=== PATIENT | female | born 1965 | race African-American/Black ===

== ENCOUNTER → 2016-09-26 | Outpatient (CLI) | payer BC ==
--- NOTE | 2016-09-26 13:17 | RADIOLOGY REPORT (SQ) ---
EXAM DESCRIPTION: U/S ABDOMEN COMPLETE W/DOPPLER COMPLETED DATE/TIME: 09/26/2016 12:57 pm REASON FOR STUDY: ABD PAIN (R10.9) R10.9 UNSPECIFIED ABDOMINAL PAIN COMPARISON: None. TECHNIQUE: Dynamic and static grayscale images acquired of the abdomen and recorded on PACS. Additio nal selected color Doppler and spectral images recorded. LIMITATIONS: None. FINDINGS: PANCREAS: No masses. Visualized pancreatic duct normal caliber. LIVER: Echotexture is coarse with increased echogenicity consistent with fatty infiltration. LIVER VASCULATURE: Normal directional flow of the main portal vein and hepatic veins. GALLBLADDER: No stones. Normal wall thickness. No pericholecystic fluid. ULTRASOUND-DETECTED MAHARAJ'S SIGN: Negative. INTRAHEPATIC DUCTS AND COMMON DUCT: CBD and intrahepatic ducts normal caliber. No filling defects. INFERIOR VENA CAVA: Normal flow. AORTA: No aneurysm. RIGHT KIDNEY: Normal size. Normal echogenicity. No solid or suspicious masses. No hydronephrosis. No calcifications. LEFT KIDNEY: Normal size. Normal echogenicity. No solid or suspicious masses. No hydronephrosis. No calcifications. SPLEEN:Not visualized. PERITONEAL AND PLEURAL SPACES: No ascites or effusions. OTHER: No other significant finding. IMPRESSION: FATTY LIVER. NO OTHER SIGNIFICANT FINDING. TECHNICAL DOCUMENTATION: JOB ID: [id number] [employer]- All Rights Reserved
== END ==
LOC: RAD 10:44
PROVIDERS: ATTEND Internal Medicine Medical Oncology
DX: R10.9 Unspecified abdominal pain (principal)
CPT/HCPCS: 76700; 93976

== ENCOUNTER → 2016-11-06 | Outpatient (CLI) | payer BC ==
--- NOTE | 2016-11-06 17:58 | WOMENS IMAGING REPORT ---
EXAM DESCRIPTION: 3D DX MAMMO BILAT; U/S BREAST UNILATERAL, COMPL COMPLETED DATE/TIME: 11/06/2016 10:51 am; 11/06/2016 12:53 pm REASON FOR STUDY: R92.8; LEFT BREAST LUMP R92.8 R92.8 OTH ABN AND INCONCLUSIVE FINDINGS ON DX IMAGI NG OF YODIT Z53.8 PROCEDURE AND TREATMENT NOT CARRIED OUT FOR OTHER REAS COMPARISON: Bilateral mammograms and left breast ultrasound 09/15/2015 TECHNIQUE: Standard craniocaudal and mediolateral oblique views of each breast recorded using digita l acquisition and breast tomosynthesis. Left breast ultrasound was also performed LIMITATIONS: None. FINDINGS: RIGHT BREAST MASSES: No suspicious masses. CALCIFICATIONS: No new or suspicious calcifications. ARCHITECTURAL DISTORTION: None. DEVELOPING DENSITY: None. ASYMMETRY: None noted. OTHER: No other significant findings. LEFT BREAST MASSES: No suspicious masses. CALCIFICATIONS: No new or suspicious calcifications. ARCHITECTURAL DISTORTION: None. DEVELOPING DENSITY: None. ASYMMETRY: None noted. OTHER: No other significant finding. Read with the assistance of CAD: .[facility] - R2 Cenova Version 1.3 .[facility] Imaging - R2 Cenova Version 1.3 .[facility] Imaging - R2 Cenova Version 2.4 .[facility] - R2 Cenova Version 2.4 .[facility] - R2 Corn Picker Version 9.2 Left breast ultrasound: A well-circumscribed hypoechoic solid nodule with good acoustic through transmission is present in th e left breast lower inner quadrant 7 to 8 o'clock position. This measures 9 x 5 mm, and a similar co mpared to ultrasound exam 09/15/2015. IMPRESSION: No mammographic/ tomosynthesis evidence for malignancy bilaterally. 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 BREAST DENSITY: d. The breasts are extremely dense, which lowers the sensitivity of mammography. BIRAD: 2 Benign findings. RECOMMENDATION: RECOMMENDED FOLLOW UP: Please continue yearly bilateral screening tomosynthesis SPECIFIC INTERVENTION/IMAGING/CONSULTATION RECOMMENDED:No additional intervention/ imaging/consultati on needed at this time. COMMUNICATION:The negative/benign results were communicated to the patient. COMMENT: The patient has been notified of the results by letter per MQSA requirements. Additional no tification policies are in place for contacting patient with suspicious or incomplete findings. Quality ID #225: The [employer] recommends an annual screening mammogram for women aged 40 years or over. This facility utilizes a reminder system to ensure that all patients receive reminder letters, and/or direct phone calls for appointments. This includes reminders for routine scr eening mammograms, diagnostic mammograms, or other Breast Imaging Interventions when appropriate. Th is patient will be placed in the appropriate reminder system. The [employer] (ACR) has developed recommendations for screening MRI of the breast s in certain patient populations, to be used in conjunction with mammography. Breast MRI surveillanc e may be appropriate for women with more than 20% lifetime risk of developing breast cancer as deter mined by genetic testing, significant family history of the disease, or history of mantle radiation f or Hodgkins Disease. ACR Practice Guidelines 2008. DBT Technology DBT is a type of tomographic mammography. With conventional mammography, overlapping breast tissue ma y make lesions difficult to detect, even with good compression. DBT uses an x-ray tube that rotates a round the breast, taking images at different angles. These images are then combined to create thin sl ices of the breast that the radiologist can view as a 3D reconstruction. The [employer] unit can perform full-field digital mammograms (2D imaging); or DBT (3D imaging); or both, in a combination mode that quickly performs both the mammogram and the tomosynthesis scan while the breast is still compressed. PQRS 6045F: Fluoroscopic imaging is not utilized for breast tomosynthesis. TECHNICAL DOCUMENTATION: FINDING NUMBER: (1) ASSESSMENT: (1) JOB ID: [id number] [employer]- All Rights Reserved
--- NOTE | 2016-11-06 17:58 | WOMENS IMAGING REPORT ---
EXAM DESCRIPTION: 3D DX MAMMO BILAT; U/S BREAST UNILATERAL, COMPL COMPLETED DATE/TIME: 11/06/2016 10:51 am; 11/06/2016 12:53 pm REASON FOR STUDY: R92.8; LEFT BREAST LUMP R92.8 R92.8 OTH ABN AND INCONCLUSIVE FINDINGS ON DX IMAGI NG OF YODIT Z53.8 PROCEDURE AND TREATMENT NOT CARRIED OUT FOR OTHER REAS COMPARISON: Bilateral mammograms and left breast ultrasound 09/15/2015 TECHNIQUE: Standard craniocaudal and mediolateral oblique views of each breast recorded using digita l acquisition and breast tomosynthesis. Left breast ultrasound was also performed LIMITATIONS: None. FINDINGS: RIGHT BREAST MASSES: No suspicious masses. CALCIFICATIONS: No new or suspicious calcifications. ARCHITECTURAL DISTORTION: None. DEVELOPING DENSITY: None. ASYMMETRY: None noted. OTHER: No other significant findings. LEFT BREAST MASSES: No suspicious masses. CALCIFICATIONS: No new or suspicious calcifications. ARCHITECTURAL DISTORTION: None. DEVELOPING DENSITY: None. ASYMMETRY: None noted. OTHER: No other significant finding. Read with the assistance of CAD: .[facility] - R2 Cenova Version 1.3 .[facility] Imaging - R2 Cenova Version 1.[address] Imaging - R2 Cenova Version 2.4 .[facility] - R2 Cenova Version 2.4 .[facility] - R2 [employer] Version 9.2 Left breast ultrasound: A well-circumscribed hypoechoic solid nodule with good acoustic through transmission is present in th e left breast lower inner quadrant 7 to 8 o'clock position. This measures 9 x 5 mm, and a similar co mpared to ultrasound exam 09/15/2015. IMPRESSION: No mammographic/ tomosynthesis evidence for malignancy bilaterally. 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 BREAST DENSITY: d. The breasts are extremely dense, which lowers the sensitivity of mammography. BIRAD: 2 Benign findings. RECOMMENDATION: RECOMMENDED FOLLOW UP: Please continue yearly bilateral screening tomosynthesis SPECIFIC INTERVENTION/IMAGING/CONSULTATION RECOMMENDED:No additional intervention/ imaging/consultati on needed at this time. COMMUNICATION:The negative/benign results were communicated to the patient. COMMENT: The patient has been notified of the results by letter per MQSA requirements. Additional no tification policies are in place for contacting patient with suspicious or incomplete findings. Quality ID #225: The [employer] recommends an annual screening mammogram for women aged 40 years or over. This facility utilizes a reminder system to ensure that all patients receive reminder letters, and/or direct phone calls for appointments. This includes reminders for routine scr eening mammograms, diagnostic mammograms, or other Breast Imaging Interventions when appropriate. Th is patient will be placed in the appropriate reminder system. The [employer] (ACR) has developed recommendations for screening MRI of the breast s in certain patient populations, to be used in conjunction with mammography. Breast MRI surveillanc e may be appropriate for women with more than 20% lifetime risk of developing breast cancer as deter mined by genetic testing, significant family history of the disease, or history of mantle radiation f or Hodgkins Disease. ACR Practice Guidelines 2008. DBT Technology DBT is a type of tomographic mammography. With conventional mammography, overlapping breast tissue ma y make lesions difficult to detect, even with good compression. DBT uses an x-ray tube that rotates a round the breast, taking images at different angles. These images are then combined to create thin sl ices of the breast that the radiologist can view as a 3D reconstruction. The [employer] unit can perform full-field digital mammograms (2D imaging); or DBT (3D imaging); or both, in a combination mode that quickly performs both the mammogram and the tomosynthesis scan while the breast is still compressed. PQRS 6045F: Fluoroscopic imaging is not utilized for breast tomosynthesis. TECHNICAL DOCUMENTATION: FINDING NUMBER: (1) ASSESSMENT: (1) JOB ID: [id number] [employer]- All Rights Reserved
== END ==
LOC: WI 10-17 10:23
PROVIDERS: ATTEND Internal Medicine Medical Oncology
DX: R92.8 Other abnormal and inconclusive findings on diagnostic imaging of breast (principal); N63 Unspecified lump in breast
CPT/HCPCS: 76641; G0279; G0204; 77062; 77066

== ENCOUNTER 2019-06-29 08:11 | Inpatient (IN) | payer OTHER ==
[2019-06-29] MEDS ORDERED: NORMAL SALINE 1000 ML 1,000 ML IV ONE ×2 (09:53→12:57)
--- NOTE | 2019-06-29 10:20 | RADIOLOGY REPORT (SQ) ---
EXAM DESCRIPTION: CHEST SINGLE VIEW COMPLETED DATE/TIME: 06/29/2019 10:05 am REASON FOR STUDY: decreased breath sounds COMPARISON: None. EXAM PARAMETERS: NUMBER OF VIEWS: One view. TECHNIQUE: Single frontal radiographic view of the chest acquired. RADIATION DOSE: NA LIMITATIONS: None. FINDINGS: LUNGS AND PLEURA: Emphysematous change with hyperinflation. No focal airspace disease. N o pleural effusion or pneumothorax. Biapical scarring. Symmetric nipple shadows. MEDIASTINUM AND HILAR STRUCTURES: No masses. Contour normal. HEART AND VASCULAR STRUCTURES: Heart normal in size. Normal vasculature. BONES: No acute bony abnormality. Decreased mineralization. 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 Chronic left posterior 4th rib fracture. HARDWARE: None in the chest. OTHER: No other significant finding. IMPRESSION: Emphysematous change without evidence of acute cardiopulmonary process. TECHNICAL DOCUMENTATION: JOB ID: [id number] 2010 [employer]- All Rights Reserved Reading location - IP/workstation name: [email or web address]
--- NOTE | 2019-06-29 10:26 | RADIOLOGY REPORT (SQ) ---
EXAM DESCRIPTION: CT HEAD WITHOUT COMPLETED DATE/TIME: 06/29/2019 10:05 am REASON FOR STUDY: lower ext weakness/left greater than right COMPARISON: None. TECHNIQUE: Axial images acquired through the brain without intravenous contrast. Images reviewed wi th bone, brain and subdural windows. Additional sagittal and coronal reconstructions were generated. Images stored on PACS. All CT scanners at this facility use dose modulation, iterative reconstruction, and/or weight based d osing when appropriate to reduce radiation dose to as low as reasonably achievable (ALARA). [facility]: Dose Right [facility]: CareDose [facility]: Dose Right [facility]: Teradose 4D [facility]: [employer] RADIATION DOSE: CT Rad equipment meets quality standard of care and radiation dose reduction techniq ues were employed. CTDIvol: 53.2 mGy. DLP: 991 mGy-cm LIMITATIONS: None. FINDINGS: VENTRICLES: Normal size and contour. The cisterns are patent. CEREBRUM: No masses. No hemorrhage. No midline shift. No evidence for acute infarction. Normal gra y/white matter differentiation. No areas of low density in the white matter. CEREBELLUM: No masses. No hemorrhage. No alteration of density. No evidence for acute infarction. EXTRAAXIAL SPACES: No fluid collections. No masses. ORBITS AND GLOBE: No intra- or extraconal masses. Normal contour of globe without masses. CALVARIUM: No fracture. PARANASAL SINUSES: Slight to mild deviation of nasal septum to the left of the midline. Nicole bull rehan in the right middle turbinate. SOFT TISSUES: No mass or hematoma. OTHER: Small right mastoid effusion. IMPRESSION: 1. No acute intracranial abnormality. 2. Additional findings as above. EVIDENCE OF ACUTE STROKE: NO. COMMENT: Quality ID # 436: Final reports with documentation of one or more dose reduction techniques (e.g., Automated exposure control, adjustment of the mA and/or kV according to patient size, use of iterative reconstruction technique) TECHNICAL DOCUMENTATION: JOB ID: [id number] 2010 [employer]- All Rights Reserved Reading location - IP/workstation name: [email or web address]
[2019-06-29 10:53] LABS: ABSOLUTE BASOPHILS # (AUTO) 0.1 10^3/uL (0.0-0.2); ABSOLUTE LYMPHOCYTES (AUTO) 1.5 10^3/uL (0.5-4.7); ABSOLUTE MONOCYTES (AUTO) 1.2 10^3/uL (0.1-1.4); ABSOLUTE NEUT (AUTO) 5.7 10^3/uL (1.7-8.2); BASOPHILS % (AUTO) 0.8 % (0-2); EOSINOPHILS % (AUTO) 0.1 % (0-6); HEMATOCRIT 34.7 % (36.0-47.0); HEMOGLOBIN 12.2 g/dL (12.0-15.5); LYMPHOCYTES % (AUTO) 17.6 % (13-45); MEAN CORPUSCULAR HGB CONC 35.1 g/dL (32.0-36.0); MEAN CORPUSCULAR VOLUME 94 fl (80-97); MONOCYTES % (AUTO) 14.1 % (3-13); PLATELET COUNT 168 10^3/uL (150-450); RED BLOOD COUNT 3.69 10^6/uL (3.72-5.28); RED CELL DISTRIBUTION WIDTH 12.8 % (11.5-14.0); SEGMENTED NEUTROPHILS % (AUTO) 67.4 % (42-78); TOTAL CELLS COUNTED % (AUTO) 100 %; WHITE BLOOD COUNT 8.5 10^3/uL (4.0-10.5)
[2019-06-29 11:00] LABS: APPEARANCE,URINE SLIGHTLY-CLOUDY; BILIRUBIN,URINE NEGATIVE (NEGATIVE); COLOR,URINE YELLOW; GLUCOSE, URINE NEGATIVE (NEGATIVE); INTERNATIONAL RATION (INR) 0.96; KETONES,URINE 20 mg/dL (NEGATIVE); LEUKOCYTE ESTERASE,URINE MODERATE (NEGATIVE); NITRITE,URINE NEGATIVE (NEGATIVE); PROTEIN,URINE NEGATIVE (NEGATIVE); PROTHROMBIN TIME 12.8 SEC (11.4-15.4); URINE SPECIFIC GRAVITY 1.013; UROBILINOGEN,URINE NEGATIVE mg/dL (<2.0)
[2019-06-29 11:01] LABS: PARTIAL THROMBOPLASTIN TIME 31.5 SEC (23.5-35.8)
[2019-06-29 11:14] LABS: URINE AMPHETAMINES SCREEN NEGATIVE; URINE BARBITURATES SCREEN NEGATIVE; URINE BENZODIAZEPINES SCREEN NEGATIVE; URINE COCAINE SCREEN NEGATIVE; URINE MARIJUANA (THC) SCREEN NEGATIVE; URINE METHADONE SCREEN NEGATIVE; URINE PHENCYCLIDINE SCREEN NEGATIVE
[2019-06-29 11:21] LABS: D-DIMER 6.48 ug/mL (0.00-0.50)
[2019-06-29 11:23] LABS: ALCOHOL < 10 mg/dL (NONE DETECTED); ALKALINE PHOSPHATASE 104 U/L (38-126); ANION GAP 6 (5-19); ASPARTATE AMINO TRANSFERASE 60 U/L (14-36); BILIRUBIN,DIRECT 0.2 mg/dL (0.0-0.4); BILIRUBIN,TOTAL 1.2 mg/dL (0.2-1.3); BLOOD UREA NITROGEN 13 mg/dL (7-20); CALCIUM 9.6 mg/dL (8.4-10.2); CARBON DIOXIDE 28 mmol/L (22-30); CHLORIDE 92 mmol/L (98-107); CREATINE KINASE 66 U/L (30-135); GLUCOSE 97 mg/dL (75-110); POTASSIUM 4.8 mmol/L (3.6-5.0); TOTAL PROTEIN 8.2 g/dL (6.3-8.2)
[2019-06-29 11:36] LABS: ERYTHROCYTE SEDIMENTATION RATE 94 mm/hr (0-30)
[2019-06-29] MEDS ORDERED: MORPHINE SULFATE 10 MG/ML INJ IV ONE ×2 (12:58→16:10)
--- NOTE | 2019-06-29 14:46 | RADIOLOGY REPORT (SQ) ---
EXAM DESCRIPTION: VENOUS BILATERAL LOWER COMPLETED DATE/TIME: 06/29/2019 2:19 pm REASON FOR STUDY: bilat leg pain/elevated D-dimer. COMPARISON: None. TECHNIQUE: Dynamic and static morin scale and color images acquired of both lower extremity venous sy stems. Selected spectral images acquired with additional compression and augmentation maneuvers. Imag es stored on PACS. LIMITATIONS: None. FINDINGS: RIGHT LEG COMMON FEMORAL AND FEMORAL: Normal phasicity, compression and augmentation. No visualized echogenic m aterial on morin scale. No defects on color images. POPLITEAL: Normal compression and augmentation. No visualized echogenic material on morin scale. No de fects on color images. CALF VESSELS: Normal compression and augmentation. No visualized echogenic material on morin scale. No defects on color image. GSV AND SSV: Normal compression. No visualized echogenic material on morin scale. No defects on color images. ANY DEEP VENOUS INSUFFICIENCY: Not evaluated. ANY EVIDENCE OF POPLITEAL CYST: No. OTHER: No other significant finding. LEFT LEG COMMON FEMORAL AND FEMORAL: Normal phasicity, compression and augmentation. No visualized echogenic m aterial on morin scale. No defects on color images. POPLITEAL: Normal compression and augmentation. No visualized echogenic material on morin scale. No de fects on color images. CALF VESSELS: Normal compression and augmentation. No visualized echogenic material on morin scale. No defects on color images. GSV AND SSV: Normal compression. No visualized echogenic material on morin scale. No defects on color images. ANY DEEP VENOUS INSUFFICIENCY: Not evaluated. ANY EVIDENCE POPLITEAL CYST: No. OTHER: No other significant finding. IMPRESSION: NO EVIDENCE DVT OR SVT IN EITHER LEG. TECHNICAL DOCUMENTATION: JOB ID: [id number] 2010 [email or web address]- All Rights Reserved Reading location - IP/workstation name: [email or web address]
--- NOTE | 2019-06-29 14:54 | RADIOLOGY REPORT (SQ) ---
EXAM DESCRIPTION: CTA CHEST COMPLETED DATE/TIME: 06/29/2019 2:22 pm REASON FOR STUDY: elevated D dimer/ COMPARISON: None. TECHNIQUE: CT scan of the chest performed using helical scanning technique with dynamic intravenous contrast injection. Images reviewed with lung, soft tissue and bone windows. Reconstructed coronal and sagittal MPR images reviewed. Additional 3 dimensional post-processing performed to develop Maximal Intensity Projection images (IL P). All images stored on PACS. All CT scanners at this facility use dose modulation, iterative reconstruction, and/or weight based d osing when appropriate to reduce radiation dose to as low as reasonably achievable (ALARA). [facility]: Dose Right [facility]: CareDose [facility]: Dose Right [facility]: Teradose 4D [facility]: [employer] CONTRAST TYPE AND DOSE: contrast/concentration: Isovue 350.00 mg/ml; Total Contrast Delivered: 49.0 ml; Total Saline Delivered: 70.0 ml Contrast bolus adequate for pulmonary arteries and aorta. RENAL FUNCTION: Creatinine 0.34 RADIATION DOSE: CT Rad equipment meets quality standard of care and radiation dose reduction techniq ues were employed. CTDIvol: 3.3 - 14.3 mGy. DLP: 553 mGy-cm. . LIMITATIONS: None. FINDINGS: LUNGS AND PLEURA: No masses, infiltrates, or pneumothorax. No pleural effusions or pleura l calcifications. Scattered centrilobular emphysema. AORTA AND GREAT VESSELS: No aneurysm. No dissection. HEART: No pericardial effusion. No significant coronary artery calcifications. PULMONARY ARTERIES: No emboli visualized in the main pulmonary arteries or the segmental branches. HILAR AND MEDIASTINAL STRUCTURES: No identified masses or abnormal nodes. HARDWARE: None in the chest. UPPER ABDOMEN: No significant findings. Limited exam. THYROID AND OTHER SOFT TISSUES: No masses. No adenopathy. BONES: No acute or significant finding. 3D MIPS: Confirm above findings. OTHER: No other significant finding. IMPRESSION: 1. No evidence of pulmonary embolus or other acute intrathoracic process. 2. Mild emphysematous change. COMMENT: Quality ID # 436: Final reports with documentation of one or more dose reduction techniques (e.g., Automated exposure control, adjustment of the mA and/or kV according to patient size, use of iterative reconstruction technique) TECHNICAL DOCUMENTATION: JOB ID: [id number] 2010 [employer]- All Rights Reserved Reading location - IP/workstation name: [email or web address]
--- NOTE | 2019-06-29 15:18 | RADIOLOGY REPORT (SQ) ---
EXAM DESCRIPTION: CT LUMBAR SPINE WITHOUT COMPLETED DATE/TIME: 06/29/2019 2:22 pm REASON FOR STUDY: bilateral lower leg pain/weakness COMPARISON: None. TECHNIQUE: Axial images acquired through the lumbar spine without intravenous contrast. Images revi ewed with lung, soft tissue and bone windows. Reconstructed coronal and sagittal MPR images reviewed . All images stored on PACS. All CT scanners at this facility use dose modulation, iterative reconstruction, and/or weight based d osing when appropriate to reduce radiation dose to as low as reasonably achievable (ALARA). [facility]: Dose Right [facility]: CareDose [facility]: Dose Right [facility]: Teradose 4D [facility]: [employer] RADIATION DOSE: mGy. LIMITATIONS: None. FINDINGS: SEGMENTATION: Normal. No transitional anatomy. ALIGNMENT: Normal. VERTEBRAL BODIES: No fractures. No dislocation. No acute findings. DISCS: Mild disc height loss at L4-5. Mild circumferential disc bulge at L4-5 and L5-S1 without sign ificant spinal canal stenosis. PEDICLES, TRANSVERSE PROCESSES: No fractures. No dislocation. No acute findings. FACETS, POSTERIOR ELEMENTS: No fractures. No dislocation. Mild lower lumbar facet arthropathy. No high-grade neural foraminal narrowing. HARDWARE: None in the spine. VISUALIZED RIBS: No fractures. SOFT TISSUES: No significant or acute finding in adjacent soft tissues. Moderate formed stool within the rectal vault. Scattered pelvic phleboliths. OTHER: Vascular calcifications. IMPRESSION: 1. No evidence of acute bony abnormality of the lumbar spine. 2. Mild degenerative change without significant osseous spinal canal stenosis or neural foraminal na rrowing. TECHNICAL DOCUMENTATION: JOB ID: [id number] Quality ID # [id number]: Final reports with documentation of one or more dose reduction techniques (e.g., Au tomated exposure control, adjustment of the mA and/or kV according to patient size, use of iterative reconstruction technique) 2010 [employer]- All Rights Reserved Reading location - IP/workstation name: [email or web address]
[2019-06-29] MEDS ORDERED: KETOROLAC TROMETHAMINE INJ/PF 30 MG/1 ML SDV IV ONE (16:09)
--- NOTE | 2019-06-29 17:09 | ER Document Report ---
Entered by SHI FLORES SCRIBE 06/29/19 0952 Acting as scribe for:JOAN HANSON MD ED General - General Chief Complaint: Leg Pain Stated Complaint: LEG PAIN Time Seen by Provider: 06/29/19 09:14 Information source: Patient Notes: 53-year-old female presents to the emergency department complaining of bilateral leg cramping that began a couple days ago. Patient explains that she was sore yesterday, the pain varies and is located in her calves. Patient describes the pain beginning as "prickly" then stinging then returning to a prickly sensation. Patient states that she drinks plenty of fluids and reports little fluid intake today. Patient denies injury, headache and weight loss. Patient stated that she took an ibuprofen with no relief. TRAVEL OUTSIDE OF THE [place] IN LAST 30 DAYS: No - Related Data Allergies/Adverse Reactions: No Known Allergies Allergy (Verified 06/29/19 08:21) Past Medical History - General Information source: Patient - Social History Smoking Status: Current Every Day Smoker Cigarette use (# per day): Yes - 4 cigarettes per day Frequency of alcohol use: None Drug Abuse: None Occupation: Receiving Clerk Family History: DM, Other - Sickle cell anemia Patient has suicidal ideation: No Patient has homicidal ideation: No - Past Medical History Cardiac Medical History: Reports: Other - Irregular Heartbeat Pulmonary Medical History: Reports: Hx Asthma Neurological Medical History: Reports: Hx Seizures Past Surgical History: Reports: Hx Herniorrhaphy, Hx Mastectomy - bilateral, Hx Tubal Ligation - Immunizations Hx Diphtheria, Pertussis, Tetanus Vaccination: Yes Review of Systems - Review of Systems Constitutional: See HPI. denies: Weight loss EENT: No symptoms reported Cardiovascular: No symptoms reported Respiratory: No symptoms reported Gastrointestinal: See HPI. denies: Diarrhea, Vomiting Genitourinary: denies: Dysuria Female Genitourinary: No symptoms reported Musculoskeletal: See HPI, Other - Leg cramping Skin: No symptoms reported Hematologic/Lymphatic: No symptoms reported Neurological/Psychological: No symptoms reported -: Yes All other systems reviewed and negative Physical Exam - Vital signs Vitals: Temp Pulse Resp BP Pulse Ox 97.3 F 97 16 175/116 H 100 06/29/19 08:20 06/29/19 08:20 06/29/19 08:20 06/29/19 08:20 06/29/19 08:20 - Notes Notes: Physical Exam: General: Alert, appears malnourished and thin. Overall emaciated. HEENT: Normocephalic. Atraumatic. PERRL. Extraocular movements intact. Oropharynx clear. Neck: Supple. Non-tender. Respiratory: No respiratory distress. Clear and equal breath sounds bilaterally. Cardiovascular: Tachycardic. Abdominal: Non-tender. Mild distension. Normal Bowel Sounds. Back: No gross abnormalities. Extremities: Moves all four extremities. Upper extremities: Normal inspection. Normal ROM. Lower extremities: No edema. Generalized weakness. Minimal leg raise off gurney with LLE worse than RLE. Neurological: Normal cognition. AAOx4. Normal speech. Psychological: Normal affect. Normal Mood. Skin: Warm. Dry. Normal color. Course - Re-evaluation Re-evalutation: 06/29/19 17:04 Patient still having lower extremity weakness in both legs left greater than right. Patient is found to be hyponatremic. Patient also has some type of inflammation going on with an elevated sed rate of 95. Patient also has a d-d leyla of 6.5. Work-up to date has not shown any evidence for stroke based on CT scan of her head CT scan of her abdomen and chest and chest shows no pulmonary embolus and no acute process inflammation or obstruction in her abdomen. Venous Doppler studies of both lower extremity shows no DVT. Patient has been given IV fluids x2L and pain medications of ketorolac and morphine patient does move her lower extremities better than before however she still has greatest difficulty with the left lower extremity with flexing or extending her lower extremity at the knee. Patient barely can lift her legs off of the gurney. Plan is to admit patient to the hospital continue treating her hyponatremia and adjust accordingly as needed. 06/29/19 17:08 Case discussed with hospitalist who will admit patient to the hospital for further management of her generalized weakness greatest in the lower extremities and her hyponatremia. - Vital Signs Vital signs: Temp Pulse Resp BP Pulse Ox 97.3 F 97 11 L 153/93 H 100 06/29/19 08:20 06/29/19 08:20 06/29/19 16:01 06/29/19 16:01 06/29/19 16:01 - Laboratory Result Diagrams: 06/29/19 10:25 06/29/19 10:25 Laboratory results interpreted by me: 06/29/19 06/29/19 06/29/19 10:25 10:25 10:25 RBC 3.69 L Hct 34.7 L [place] % (Auto) 14.1 H ESR 94 H D-Dimer 6.48 H Sodium 125.7 L Chloride 92 L Creatinine 0.34 L AST 60 H Urine Ketones Ur Leukocyte Esterase 06/29/19 10:25 RBC Hct [place] % (Auto) ESR D-Dimer Sodium Chloride Creatinine AST Urine Ketones 20 H Ur Leukocyte Esterase MODERATE H Patient has a low level troponin elevation 0.02 9 repeat troponin pending at this time there is no acute ST elevation present. - Diagnostic Test Radiology reviewed: Image reviewed, Reports reviewed Radiology results interpreted by me: 06/29/19 17:01 Twelve-lead EKG shows a normal sinus rhythm rate of 99 right atrial abnormality and consider left ventricular hypertrophy this was done on 06/29/2019 1043. 06/29/19 17:[address] scan of head no acute process no evidence for stroke CT scan of chest shows no pulmonary emboli no acute process chest x-ray plain film no acute process emphysema appearance. CT of abdomen and pelvis no acute process noted no obstruction bilateral lower extremities venous Doppler study shows no DVT. Discharge - Discharge Clinical Impression: Acute hyponatremia, Bilateral leg weakness, Elevated troponin I level Condition: Fair Disposition: ADMITTED INPATIENT Admitting Provider: Mayte (Hospitalist) Unit Admitted: Telemetry I personally performed the services described in the documentation, reviewed and edited the documentation which was dictated to the scribe in my presence, and it accurately records my words and actions.
[2019-06-29 17:54] LABS: OSMOLALITY,URINE 440 mOsm/kg (300-900)
[2019-06-29 18:00] LABS: URINE SODIUM 17 mmol/L (30-90)
[2019-06-29] MEDS ORDERED: ACETAMINOPHEN 325 MG TABLET PO PRN (18:06)
[2019-06-29] MEDS ORDERED: ALBUTEROL SULFATE 0.083% NEB 2.5 MG/3 ML AMPUL NEB PRN (18:06)
--- NOTE | 2019-06-29 18:20 | PDOC H&P ---
History of Present Illness Admission Date/PCP: 06/29/19 17:46 Patient complains of: Paresthesias in bilateral lower extremities History of Present Illness: CORBIN MULLIGAN is a 53 year old female with a history of childhood asthma, scoliosis, alopecia, who presents to the hospital for evaluation of ambulatory dysfunction as well as paresthesia in bilateral lower extremities left more than right. Symptoms have been present for about 1 week now and have been associated with cramping type pain in both legs occurring very frequently throughout the day. Patient endorses usually having cramps but has been more prolonged on this occasion and have persisted despite her taking potassium and magnesium supplements. Patient has been taking ibuprofen for this for the past few days without much relief. Patient also admits to lower back pain. Patient states that her leg symptoms have been profound to the point where she is now requiring a walker for ambulation. Admits some urinary incontinence though seems limited by the fact that patient is not very ambulatory at this point. Past Medical History Pulmonary Medical History: Reports: Asthma Past Surgical History Past Surgical History: Reports: Herniorrhaphy, Tubal Ligation, Other - Breast biopsy bilateral Social History Smoking Status: Current Every Day Smoker Frequency of Alcohol Use: Occasional Hx Recreational Drug Use: No - Advance Directive Resuscitation Status: Full Code Family History Family History: DM, Other - Sickle cell anemia Parental Family History Reviewed: Yes Children Family History Reviewed: NA Sibling(s) Family History Reviewed.: NA Medication/Allergy Home Medications: No Home Medications 11/10/15 Allergies/Adverse Reactions: No Known Allergies Allergy (Verified 06/29/19 08:21) Review of Systems Constitutional: ABSENT: anorexia, chills, fatigue, fever(s), headache(s) Eyes: ABSENT: visual disturbances Nose, Mouth, and Throat: ABSENT: headache(s) Cardiovascular: ABSENT: chest pain, dyspnea on exertion, edema Respiratory: ABSENT: cough, dyspnea Gastrointestinal: ABSENT: abdominal pain, diarrhea, nausea, vomiting Genitourinary: ABSENT: dysuria Musculoskeletal: PRESENT: back pain Integumentary: ABSENT: diaphoresis Neurological: PRESENT: dizziness, weakness. ABSENT: focal weakness, syncope Psychiatric: ABSENT: anxiety Hematologic/Lymphatic: ABSENT: easy bruising Physical Exam Vital Signs: Temp Pulse Resp BP Pulse Ox 97.3 F 97 11 L 153/93 H 100 06/29/19 08:20 06/29/19 08:20 06/29/19 16:01 06/29/19 16:01 06/29/19 16:01 Intake & Output 06/28/19 06/29/19 06/30/19 06:59 06:59 06:59 Intake Total 1999 Balance 1999 Weight 53 kg General appearance: PRESENT: no acute distress, cooperative, thin Eye exam: PRESENT: EOMI. ABSENT: scleral icterus Mouth exam: PRESENT: neck supple Neck exam: ABSENT: JVD Respiratory exam: PRESENT: clear to auscultation alicja, unlabored. ABSENT: tachypnea, wheezes Cardiovascular exam: PRESENT: +S1, +S2, tachycardia. ABSENT: irregular rhythm GI/Abdominal exam: PRESENT: soft. ABSENT: rebound, rigid, tenderness Extremities exam: ABSENT: calf tenderness, pedal edema Musculoskeletal exam: PRESENT: full ROM, other - + straight leg test Neurological exam: PRESENT: alert, awake, oriented to person, oriented to place, oriented to time Psychiatric exam: ABSENT: anxious Focused psych exam: ABSENT: internal stimuli, pressured speech Skin exam: ABSENT: jaundice Results Laboratory Results: 06/29/19 10:25 06/29/19 06/29/19 06/29/19 10:25 10:25 10:25 WBC 8.5 RBC 3.69 L Hgb 12.2 Hct 34.7 L MCV 94 MCH 33.0 MCHC 35.1 RDW 12.8 Plt Count 168 Seg Neutrophils % 67.4 Sodium 125.7 L Potassium 4.8 Chloride 92 L Carbon Dioxide 28 Anion Gap 6 BUN 13 Creatinine 0.34 L Est GFR ( Amer) > 60 Glucose 97 Serum Osmolality Lactic Acid Calcium 9.6 Total Bilirubin 1.2 AST 60 H Alkaline Phosphatase 104 Total Protein 8.2 Albumin 4.0 Lipase 141.0 Urine Color YELLOW Urine Appearance SLIGHTLY-CLOUDY Urine pH 5.0 Ur Specific [place] 1.013 Urine Protein NEGATIVE Urine Glucose (UA) NEGATIVE Urine Ketones 20 H Urine Blood NEGATIVE Urine Nitrite NEGATIVE Ur Leukocyte Esterase MODERATE H Urine WBC (Auto) 17 Urine RBC (Auto) 12 Urine Osmolality 06/29/19 06/29/19 06/29/19 10:25 10:25 11:02 WBC RBC Hgb Hct MCV MCH MCHC RDW Plt Count Seg Neutrophils % Sodium Potassium Chloride Carbon Dioxide Anion Gap BUN Creatinine Est GFR ( Amer) Glucose Serum Osmolality 267 L Lactic Acid 1.1 Calcium Total Bilirubin AST Alkaline Phosphatase Total Protein Albumin Lipase Urine Color Urine Appearance Urine pH Ur Specific [place] Urine Protein Urine Glucose (UA) Urine Ketones Urine Blood Urine Nitrite Ur Leukocyte Esterase Urine WBC (Auto) Urine RBC (Auto) Urine Osmolality 440 06/29/19 06/29/19 10:25 10:25 Creatine Kinase 66 Troponin I 0.029 Impressions: Head CT 06/29/19 09:51 IMPRESSION: 1. No acute intracranial abnormality. 2. Additional findings as above. EVIDENCE OF ACUTE STROKE: NO. Chest X-Ray 06/29/19 09:52 IMPRESSION: Emphysematous change without evidence of acute cardiopulmonary process. Venous Doppler Study 06/29/19 12:48 IMPRESSION: NO EVIDENCE DVT OR SVT IN EITHER LEG. Lumbar Spine CT 06/29/19 12:50 IMPRESSION: 1. No evidence of acute bony abnormality of the lumbar spine. 2. Mild degenerative change without significant osseous spinal canal stenosis or neural foraminal narrowing. Chest/Abdomen CTA 06/29/19 12:53 IMPRESSION: 1. No evidence of pulmonary embolus or other acute intrathoracic process. 2. Mild emphysematous change. Assessment and Plan - Diagnosis (1) Hyponatremia Is this a current diagnosis for this admission?: Yes Plan: Possibly secondary to hypovolemia. Will check response to IV fluids. Repeat BMP. Check serum and urine osmolarity as well as urine sodium. (2) Lumbar radiculopathy, acute Is this a current diagnosis for this admission?: Yes Plan: Lumbar CT some mild degenerative joint disease of the L-spine as well as some evidence of disc bulging which could very well account for symptoms of radiculopathy, positive straight leg test and low back pain. Patient will benefit from physical therapy. Will start patient on gabapentin 300 mg every afternoon and uptitrate as needed. (3) Bilateral leg weakness Is this a current diagnosis for this admission?: Yes Plan: Physical therapy (4) Elevated troponin I level Is this a current diagnosis for this admission?: Yes Plan: Denies any chest pain or shortness of breath. Will check repeat troponin. (5) Elevated d-dimer Is this a current diagnosis for this admission?: Yes Plan: Patient does seem to be having some systemic inflammatory process and may very well have some underlying rheumatological disease or connective tissue disease especially in light of alopecia. However, there is no clear suggestion that this is clinically significant to patient's current presentation. CTA of the chest was done which was negative for PE. Venous Dopplers were also negative for DVT or SVT. - Time Time Spent with patient: 35 or more minutes
[2019-06-29 18:27] LABS: ANION GAP 7 (5-19); BLOOD UREA NITROGEN 12 mg/dL (7-20); CALCIUM 8.9 mg/dL (8.4-10.2); CARBON DIOXIDE 25 mmol/L (22-30); CHLORIDE 99 mmol/L (98-107); GLUCOSE 110 mg/dL (75-110)
[2019-06-29] MEDS ORDERED: GABAPENTIN 300 MG CAPSULE PO ONE ×2 (19:00→22:00)
[2019-06-30] MEDS: TRAMADOL HCL 50 MG TABLET PO PRN ×2 (00:34→11:29)
[2019-06-30] MEDS ORDERED: INFLUENZA QUAD (6MOS+) 2019-20 VAC 0.5 ML SYR IM ONE (01:17)
[2019-06-30 06:35] LABS: ABSOLUTE BASOPHILS # (AUTO) 0.1 10^3/uL (0.0-0.2); ABSOLUTE LYMPHOCYTES (AUTO) 2.5 10^3/uL (0.5-4.7); ABSOLUTE MONOCYTES (AUTO) 1.1 10^3/uL (0.1-1.4); BASOPHILS % (AUTO) 1.3 % (0-2); EOSINOPHILS % (AUTO) 0.4 % (0-6); HEMATOCRIT 26.6 % (36.0-47.0); LYMPHOCYTES % (AUTO) 32.4 % (13-45); MEAN CORPUSCULAR HEMOGLOBIN 33.8 pg (27.0-33.4); MEAN CORPUSCULAR HGB CONC 35.3 g/dL (32.0-36.0); MEAN CORPUSCULAR VOLUME 96 fl (80-97); MONOCYTES % (AUTO) 14.2 % (3-13); PLATELET COUNT 150 10^3/uL (150-450); RED BLOOD COUNT 2.77 10^6/uL (3.72-5.28); RED CELL DISTRIBUTION WIDTH 12.5 % (11.5-14.0); SEGMENTED NEUTROPHILS % (AUTO) 51.7 % (42-78); TOTAL CELLS COUNTED % (AUTO) 100 %; WHITE BLOOD COUNT 7.8 10^3/uL (4.0-10.5)
[2019-06-30 06:36] LABS: ANION GAP 7 (5-19); BLOOD UREA NITROGEN 13 mg/dL (7-20); CALCIUM 8.9 mg/dL (8.4-10.2); CARBON DIOXIDE 26 mmol/L (22-30); CHLORIDE 99 mmol/L (98-107); GLUCOSE 100 mg/dL (75-110); PHOSPHORUS 4.1 mg/dL (2.5-4.5); POTASSIUM 3.6 mmol/L (3.6-5.0)
[2019-06-30 06:37] LABS: HEMOGLOBIN 9.4 g/dL (12.0-15.5)
[2019-06-30] MEDS ORDERED: NORMAL SALINE 1000 ML 1,000 ML IV ONE (08:39)
[2019-06-30] MEDS: ENOXAPARIN SODIUM INJ 40 MG/0.4 ML DISP.SYRIN SUBCUT SCH (09:39)
[2019-06-30] MEDS ORDERED: AMLODIPINE BESYLATE 5 MG TABLET PO ONE (11:19)
--- NOTE | 2019-06-30 11:43 | EKG REPORT ---
SEVERITY:- ABNORMAL ECG - SINUS RHYTHM RIGHT ATRIAL ABNORMALITY CONSIDER LEFT VENTRICULAR HYPERTROPHY : Confirmed by: Alexis Champagne 30-Jun-2019 11:42:59
--- NOTE | 2019-06-30 14:27 | PDOC PROGRESS REPORT ---
Subjective Progress Note for:: 06/30/19 Subjective:: Patient having some back pain but mostly paresthesias down her leg mostly the left leg. Was not able to work much with physical therapy. Reason For Visit: HYPONATREMIA, BACK PAIN Physical Exam Vital Signs: Temp Pulse Resp BP Pulse Ox 97.8 F 85 17 144/89 H 100 06/30/19 12:00 06/30/19 12:00 06/30/19 12:00 06/30/19 11:05 06/30/19 12:00 Intake & Output 06/29/19 06/30/19 07/01/19 06:59 06:59 06:59 Intake Total 1999 Balance 1999 Weight 44.3 kg 44.3 kg General appearance: PRESENT: no acute distress, cooperative Neck exam: ABSENT: JVD Respiratory exam: PRESENT: symmetrical, unlabored. ABSENT: accessory muscle use, retraction, tachypnea Cardiovascular exam: PRESENT: RRR. ABSENT: bradycardia, irregular rhythm, tachycardia GI/Abdominal exam: PRESENT: soft. ABSENT: rebound, rigid, tenderness Extremities exam: ABSENT: tenderness Musculoskeletal exam: PRESENT: tenderness - Mildly low back Neurological exam: PRESENT: alert, awake, oriented to person, oriented to place, oriented to time Results Laboratory Results: 06/30/19 05:49 06/30/19 05:49 06/29/19 06/29/19 06/29/19 10:25 10:25 17:55 WBC RBC Hgb Hct MCV MCH MCHC RDW Plt Count Seg Neutrophils % Sodium 130.7 L Potassium 4.0 Chloride 99 Carbon Dioxide 25 Anion Gap 7 BUN 12 Creatinine 0.39 L Est GFR ( Amer) > 60 Glucose 110 Serum Osmolality 267 L Calcium 8.9 Phosphorus Magnesium Urine Osmolality 440 06/30/19 06/30/19 05:49 05:49 WBC 7.8 RBC 2.77 L Hgb 9.4 L D Hct 26.6 L MCV 96 MCH 33.8 H MCHC 35.3 RDW 12.5 Plt Count 150 Seg Neutrophils % 51.7 Sodium 131.9 L Potassium 3.6 Chloride 99 Carbon Dioxide 26 Anion Gap 7 BUN 13 Creatinine 0.38 L Est GFR ( Amer) > 60 Glucose 100 Serum Osmolality Calcium 8.9 Phosphorus 4.1 Magnesium 2.0 Urine Osmolality 06/29/19 06/29/19 06/29/19 10:25 10:25 17:55 Creatine Kinase 66 Troponin I 0.029 0.022 Impressions: Head CT 06/29/19 09:51 IMPRESSION: 1. No acute intracranial abnormality. 2. Additional findings as above. EVIDENCE OF ACUTE STROKE: NO. Chest X-Ray 06/29/19 09:52 IMPRESSION: Emphysematous change without evidence of acute cardiopulmonary process. Venous Doppler Study 06/29/19 12:48 IMPRESSION: NO EVIDENCE DVT OR SVT IN EITHER LEG. Lumbar Spine CT 06/29/19 12:50 IMPRESSION: 1. No evidence of acute bony abnormality of the lumbar spine. 2. Mild degenerative change without significant osseous spinal canal stenosis or neural foraminal narrowing. Chest/Abdomen CTA 06/29/19 12:53 IMPRESSION: 1. No evidence of pulmonary embolus or other acute intrathoracic process. 2. Mild emphysematous change. Assessment and Plan - Diagnosis (1) Hyponatremia Is this a current diagnosis for this admission?: Yes Plan: Possibly secondary to hypovolemia. Improved significantly with IV fluids. Will give another bolus of normal saline today. Encourage adequate caloric intake. (2) Lumbar radiculopathy, acute Is this a current diagnosis for this admission?: Yes Plan: Lumbar CT some mild degenerative joint disease of the L-spine as well as some evidence of disc bulging which could very well account for symptoms of radiculopathy, positive straight leg test and low back pain. Continue patient on gabapentin 300 mg every afternoon and uptitrate as needed. I have consulted pain management for new recommendations regarding patient's pain/paresthesia control (3) Bilateral leg weakness Is this a current diagnosis for this admission?: Yes Plan: Physical therapy (4) Elevated troponin I level Is this a current diagnosis for this admission?: Yes Plan: Minimally elevated and flat trend. No evidence of ACS. (5) Elevated d-dimer Is this a current diagnosis for this admission?: Yes Plan: Patient does seem to be having some systemic inflammatory process and may very well have some underlying rheumatological disease or connective tissue disease especially in light of alopecia. However, there is no clear suggestion that this is clinically significant to patient's current presentation. CTA of the chest was done which was negative for PE. Venous Dopplers were also negative for DVT or SVT. - Time Time Spent with patient: Less than 15 minutes
[2019-06-30] MEDS ORDERED: GABAPENTIN 300 MG CAPSULE PO SCH (18:00)
[2019-07-01 05:52] LABS: ANION GAP 8 (5-19); BLOOD UREA NITROGEN 9 mg/dL (7-20); CARBON DIOXIDE 27 mmol/L (22-30); CHLORIDE 99 mmol/L (98-107); GLUCOSE 94 mg/dL (75-110); POTASSIUM 3.6 mmol/L (3.6-5.0)
[2019-07-01] MEDS: TRAMADOL HCL 50 MG TABLET PO PRN (07:47)
--- NOTE | 2019-07-01 08:37 | RADIOLOGY REPORT (SQ) ---
EXAM DESCRIPTION: MRI LUMBAR SPINE WITHOUT COMPLETED DATE/TIME: 06/30/2019 9:54 pm REASON FOR STUDY: lumbar radiculopathy COMPARISON: CT from recently. TECHNIQUE: Sagittal and Axial imaging includes T1, T2, STIR and gradient echo sequences. Coronal T2/ HASTE imaging. LIMITATIONS: Axial sequences in particular are up to moderately limited by motion. FINDINGS: VISUALIZED UPPER ABDOMEN: Liver looks enlarged in the craniocaudal dimension at least, ove r 20 cm. Limited assessment of the abdomen otherwise. SEGMENTATION: No transitional anatomy. The lowest well-developed disc space is labeled L5-S1. ALIGNMENT: Anatomic. VERTEBRAE: Intact. BONE MARROW: Normal. No marrow replacement or reactive changes. DISC SIGNAL: Mild signal and height loss at L4-5. POSTERIOR ELEMENTS: Facet arthropathy, variable degenerative overgrowth particularly in the lower se gments. No overt pars defect. HARDWARE: None in the spine. CORD AND CONUS: Normal in size and signal intensity. Conus at the appropriate level. SOFT TISSUES: No aortic aneurysm seen. No bulky retroperitoneal adenopathy or mass. No paraspinal mas s or fluid. L1-L2: Suspect mild left foraminal narrowing. L2-L3: Mild left foraminal narrowing. L3-L4: Mild bilateral foraminal narrowing. L4-L5: Broad mild disc protrusion without significant nerve root impingement or central stenosis. Mi ld facet degenerative overgrowth. Up to moderate left and mild right foraminal narrowing suggested. L5-S1: No significant spinal stenosis or exit foraminal stenosis. LOWER THORACIC: Incompletely imaged. No stenosis seen. SACRUM: Visualized upper sacrum intact. OTHER: Urinary bladder looks distended, incompletely evaluated. IMPRESSION: 1. Spondylosis without suggestion of high-grade stenosis. 2. No fracture or worrisome bone lesion or spinal malalignment. 3. Other findings as above. TECHNICAL DOCUMENTATION: JOB ID: [id number] 2010 [employer]- All Rights Reserved Reading location - IP/workstation name: [email or web address]
[2019-07-01] MEDS: ENOXAPARIN SODIUM INJ 40 MG/0.4 ML DISP.SYRIN SUBCUT SCH (09:20)
[2019-07-01] MEDS ORDERED: AMLODIPINE BESYLATE 5 MG TABLET PO SCH (10:00)
--- NOTE | 2019-07-01 14:14 | PDOC DISCHARGE SUMMARY ---
Impression - Admit/DC Date/PCP Admission Date/Primary Care Provider: 06/29/19 17:46 Discharge Date: 07/01/19 - Discharge Diagnosis (1) Hyponatremia Is this a current diagnosis for this admission?: Yes (2) Lumbar radiculopathy, acute Is this a current diagnosis for this admission?: Yes (3) Bilateral leg weakness Is this a current diagnosis for this admission?: Yes (4) Elevated troponin I level Is this a current diagnosis for this admission?: Yes (5) Elevated d-dimer Is this a current diagnosis for this admission?: Yes (6) Hypertension Is this a current diagnosis for this admission?: Yes - Additional Information Resuscitation Status: Full Code Discharge Diet: As Tolerated Discharge Activity: Activity As Tolerated Referrals: [facility] [Provider Group] LINDA REZA MD [ACTIVE STAFF] - Prescriptions: Ibuprofen [Motrin 400 mg Tablet] 400 mg PO TIDP PRN #30 tablet PRN Reason: Gabapentin [Neurontin 300 mg Capsule] 300 mg PO BID #60 capsule Amlodipine Besylate [Norvasc 5 mg Tablet] 5 mg PO DAILY 30 Days tablet Home Medications: Amlodipine Besylate [Norvasc 5 mg Tablet] 5 mg PO DAILY 30 Days tablet 07/01/19 Gabapentin [Neurontin 300 mg Capsule] 300 mg PO BID #60 capsule 07/01/19 Ibuprofen [Motrin 400 mg Tablet] 400 mg PO TIDP PRN #30 tablet 07/01/19 History of Present Illiness History of Present Illness: CORBIN MULLIGAN is a 53 year old female with a history of childhood asthma, scoliosis, alopecia, who presents to the hospital for evaluation of ambulatory dysfunction as well as paresthesia in bilateral lower extremities left more than right. Symptoms have been present for about 1 week now and have been associated with cramping type pain in both legs occurring very frequently throughout the day. Patient endorses usually having cramps but has been more prolonged on this occasion and have persisted despite her taking potassium and magnesium supplements. Patient has been taking ibuprofen for this for the past few days without much relief. Patient also admits to lower back pain. Patient states that her leg symptoms have been profound to the point where she is now requiring a walker for ambulation. Admits some urinary incontinence though seems limited by the fact that patient is not very ambulatory at this point. Hospital Course Hospital Course: Patient was admitted for evaluation of lower back pain and paresthesias in her legs. She was also noted to be hyponatremic on presentation at 125. This was due to hypovolemia poor caloric intake. Patient was started on diet and given some normal saline with significant improvement of her hyponatremia. Sodium level today is 134. Lumbar MRI was performed which showed spondylosis without any high-grade stenosis but did also show moderate left neuroforaminal narrowing and mild right neuroforaminal narrowing in the L4-L5 region without any significant nerve impingement without any worrisome bone lesions. Patient has worked with physical therapy and has had some difficulty ambulating. Able to stand and transfer. I have discussed with Dr. Reza with pain management and will make plans to have patient follow-up with Dr. Whitman in the clinic. I have placed patient on Neurontin for neuropathic pain from her lumbar radiculopathy and I recommended Motrin as needed. We we have reached out to home health for home physical therapy. Assistive devices to help her at home. Also started on amlodipine 5 mg for hypertension. Physical Exam Vital Signs: Temp Pulse Resp BP Pulse Ox 98.4 F 97 16 148/83 H 100 07/01/19 11:21 07/01/19 11:21 07/01/19 11:21 07/01/19 11:21 07/01/19 11:21 Intake & Output 06/30/19 07/01/19 07/02/19 06:59 06:59 06:59 Intake Total 1999 420 Balance 1999 420 Weight 44.3 kg 46.7 kg General appearance: PRESENT: no acute distress, cooperative Respiratory exam: PRESENT: clear to auscultation alicja Neurological exam: PRESENT: alert, awake, oriented to person, oriented to place, oriented to time Results Laboratory Results: WBC 7.8 10^3/uL (4.0-10.5) 06/30/19 05:49 RBC 2.77 10^6/uL (3.72-5.28) L 06/30/19 05:49 Hgb 9.4 g/dL (12.0-15.5) L D 06/30/19 05:49 Hct 26.6 % (36.0-47.0) L 06/30/19 05:49 MCV 96 fl (80-97) 06/30/19 05:49 MCH 33.8 pg (27.0-33.4) H 06/30/19 05:49 MCHC 35.3 g/dL (32.0-36.0) 06/30/19 05:49 RDW 12.5 % (11.5-14.0) 06/30/19 05:49 Plt Count 150 10^3/uL (150-450) 06/30/19 05:49 Lymph % (Auto) 32.4 % (13-45) 06/30/19 05:49 [place] % (Auto) 14.2 % (3-13) H 06/30/19 05:49 Eos % (Auto) 0.4 % (0-6) 06/30/19 05:49 Baso % (Auto) 1.3 % (0-2) 06/30/19 05:49 Absolute Neuts (auto) 4.0 10^3/uL (1.7-8.2) 06/30/19 05:49 Absolute Lymphs (auto) 2.5 10^3/uL (0.5-4.7) 06/30/19 05:49 Absolute Monos (auto) 1.1 10^3/uL (0.1-1.4) 06/30/19 05:49 Absolute Eos (auto) 0.0 10^3/uL (0.0-0.6) 06/30/19 05:49 Absolute Basos (auto) 0.1 10^3/uL (0.0-0.2) 06/30/19 05:49 Seg Neutrophils % 51.7 % (42-78) 06/30/19 05:49 ESR 94 mm/hr (0-30) H 06/29/19 10:25 PT 12.8 SEC (11.4-15.4) 06/29/19 10:25 INR 0.96 06/29/19 10:25 APTT 31.5 SEC (23.5-35.8) 06/29/19 10:25 D-Dimer 6.48 ug/mL (0.00-0.50) H 06/29/19 10:25 Sodium 134.1 mmol/L (137-145) L 07/01/19 04:57 Potassium 3.6 mmol/L (3.6-5.0) 07/01/19 04:57 Chloride 99 mmol/L (98-107) 07/01/19 04:57 Carbon Dioxide 27 mmol/L (22-30) 07/01/19 04:57 Anion Gap 8 (5-19) 07/01/19 04:57 BUN 9 mg/dL (7-20) 07/01/19 04:57 Creatinine 0.32 mg/dL (0.52-1.25) L 07/01/19 04:57 Est GFR ( Amer) > 60 (>60) 07/01/19 04:57 Est GFR (MDRD) Non-Af > 60 (>60) 07/01/19 04:57 Glucose 94 mg/dL (75-110) 07/01/19 04:57 Serum Osmolality 267 mOsm/kg (275-301) L 06/29/19 10:25 Lactic Acid 1.1 mmol/L (0.7-2.1) 06/29/19 11:02 Calcium 9.0 mg/dL (8.4-10.2) 07/01/19 04:57 Phosphorus 4.1 mg/dL (2.5-4.5) 06/30/19 05:49 Magnesium 2.0 mg/dL (1.6-2.3) 06/30/19 05:49 Total Bilirubin 1.2 mg/dL (0.2-1.3) 06/29/19 10:25 Direct Bilirubin 0.2 mg/dL (0.0-0.4) 06/29/19 10:25 Neonat Total Bilirubin Not Reportable 06/29/19 10:25 Neonat Direct Bilirubin Not Reportable 06/29/19 10:25 Neonat Indirect Bili Not Reportable 06/29/19 10:25 AST 60 U/L (14-36) H 06/29/19 10:25 ALT 29 U/L (<35) 06/29/19 10:25 Alkaline Phosphatase 104 U/L (38-126) 06/29/19 10:25 Creatine Kinase 66 U/L (30-135) 06/29/19 10:25 Myoglobin 32 ng/mL (25-58) 06/29/19 10:25 Troponin I 0.022 ng/mL 06/29/19 17:55 Total Protein 8.2 g/dL (6.3-8.2) 06/29/19 10:25 Albumin 4.0 g/dL (3.5-5.0) 06/29/19 10:25 Lipase 141.0 U/L (23-300) 06/29/19 10:25 Urine Color YELLOW 06/29/19 10:25 Urine Appearance SLIGHTLY-CLOUDY 06/29/19 10:25 Urine pH 5.0 (5.0-9.0) 06/29/19 10:25 Ur Specific [place] 1.013 06/29/19 10:25 Urine Protein NEGATIVE mg/dL (NEGATIVE) 06/29/19 10:25 Urine Glucose (UA) NEGATIVE mg/dL (NEGATIVE) 06/29/19 10:25 Urine Ketones 20 mg/dL (NEGATIVE) H 06/29/19 10:25 Urine Blood NEGATIVE (NEGATIVE) 06/29/19 10:25 Urine Nitrite NEGATIVE (NEGATIVE) 06/29/19 10:25 Urine Bilirubin NEGATIVE (NEGATIVE) 06/29/19 10:25 Urine Urobilinogen NEGATIVE mg/dL (<2.0) 06/29/19 10:25 Ur Leukocyte Esterase MODERATE (NEGATIVE) H 06/29/19 10:25 Urine WBC (Auto) 17 /HPF 06/29/19 10:25 Urine RBC (Auto) 12 /HPF 06/29/19 10:25 U Hyaline Cast (Auto) 1 /LPF 06/29/19 10:25 Urine Bacteria (Auto) 1+ /HPF 06/29/19 10:25 Squamous Epi Cells Auto 4 /HPF 06/29/19 10:25 Urine Mucus (Auto) RARE /LPF 06/29/19 10:25 Urine Osmolality 440 mOsm/kg (300-900) 06/29/19 10:25 Urine Sodium 17 mmol/L (30-90) L 06/29/19 10:25 Urine Ascorbic Acid NEGATIVE (NEGATIVE) 06/29/19 10:25 Urine Opiates Screen NEGATIVE 06/29/19 10:25 Urine Methadone Screen NEGATIVE 06/29/19 10:25 Ur Barbiturates Screen NEGATIVE 06/29/19 10:25 Ur Phencyclidine Scrn NEGATIVE 06/29/19 10:25 Ur Amphetamines Screen NEGATIVE 06/29/19 10:25 U Benzodiazepines Scrn NEGATIVE 06/29/19 10:25 Urine Cocaine Screen NEGATIVE 06/29/19 10:25 U Marijuana (THC) Screen NEGATIVE 06/29/19 10:25 Serum Alcohol < 10 mg/dL (NONE DETECTED) 06/29/19 10:25 06/29/19 06/29/19 10:25 17:55 Troponin I 0.029 0.022 Impressions: Head CT 06/29/19 09:51 IMPRESSION: 1. No acute intracranial abnormality. 2. Additional findings as above. EVIDENCE OF ACUTE STROKE: NO. Chest X-Ray 06/29/19 09:52 IMPRESSION: Emphysematous change without evidence of acute cardiopulmonary process. Venous Doppler Study 06/29/19 12:48 IMPRESSION: NO EVIDENCE DVT OR SVT IN EITHER LEG. Lumbar Spine CT 06/29/19 12:50 IMPRESSION: 1. No evidence of acute bony abnormality of the lumbar spine. 2. Mild degenerative change without significant osseous spinal canal stenosis or neural foraminal narrowing. Chest/Abdomen CTA 06/29/19 12:53 IMPRESSION: 1. No evidence of pulmonary embolus or other acute intrathoracic process. 2. Mild emphysematous change. Lumbar Spine MRI 06/30/19 00:00 IMPRESSION: 1. Spondylosis without suggestion of high-grade stenosis. 2. No fracture or worrisome bone lesion or spinal malalignment. 3. Other findings as above. Plan Time Spent: Less than 30 Minutes Stroke Is this a Stroke Patient?: No Acute Heart Failure - Is this a Heart Failure Patient?: No
[2019-07-01 15:00] VITALS: BP 134/76
== END 2019-07-01 16:30 | disposition home health service (06) | DRG 552 ==
LOC: ER 08:11 → EH 17:46 → 5 19:56
PROVIDERS: ADMIT Internal Medicine; ATTEND Internal Medicine
PROC: 3E0234Z Introduction of Serum, Toxoid and Vaccine into Muscle, Percutaneous Approach (ICD-10-PCS; principal; 2019-07-01)
DX: M54.16 Radiculopathy, lumbar region (principal); E87.1 Hypo-osmolality and hyponatremia; R20.2 Paresthesia of skin; I10 Essential (primary) hypertension; R53.1 Weakness; M79.669 Pain in unspecified lower leg; R79.89 Other specified abnormal findings of blood chemistry; M41.9 Scoliosis, unspecified; L65.9 Nonscarring hair loss, unspecified; F17.210 Nicotine dependence, cigarettes, uncomplicated; Z23 Encounter for immunization
CPT/HCPCS: 36415; 70450; 71045; 71275; 72131; 72148; 80048; 80053; 80307; 81001; 82550; 83605; 83690; 83735; 83874; 83930; 83935; 84100; 84300; 84484; 85025; 85379; 85610; 85652; 85730; 90686; 93005; 93010; 93970; 96361; 96374; 96375; 96376; 99285; J1650; J1885; J2270; J7030

== ENCOUNTER 2019-07-02 14:00 | Emergency (ER) | payer OTHER ==
--- NOTE | 2019-07-02 15:33 | ER Document Report ---
ED Medical Screen (RME) - General Chief Complaint: Leg Pain Stated Complaint: LEG PAIN, WEAKNESS,HARD TO BREATHE Time Seen by Provider: 07/02/19 15:12 Mode of Arrival: Wheelchair Information source: Patient TRAVEL OUTSIDE OF THE [place] IN LAST 30 DAYS: No - HPI Patient complains to provider of: Lower back pain Onset: Just prior to arrival Onset/Duration: Persistent Quality of pain: Achy, Burning Associated Symptoms: None Exacerbated by: Standing, Movement Relieved by: Denies Similar symptoms previously: Yes Recently seen / treated by doctor: Yes Notes: 07/02/19 15:30 This is a 53-year-old female who was admitted to the hospital and discharged yesterday. She is provided a prescription for gabapentin which she did not fill until just prior to arrival. She presented to the emergency room because she had discomfort. She has follow-up with neurosurgery Dr. Whitman next week. She had previously been admitted here to the facility. She was provided with Motrin and gabapentin for the discomfort. She did not fill nor take the gabapentin prior to arrival to the emergency room today. Patient and I had a long conversation about her medication and I asked her what the gabapentin was for and she was unsure. I carefully discussed with her that gabapentin in conjunction with the Motrin was usually for discomfort associated with nerve type pain. She states that she was unaware that and had she known that she was taking the gabapentin prior to coming to the emergency room to see if it would work. Patient has no new findings no new neuralgias good capillary refill distal to the affected area she will be discharged home follow-up with Dr. Whitman as already scheduled she should return to the emergency room for any change worsening condition. - Related Data Smoking: Cigarettes Frequency of alcohol use: Rare Drug Abuse: None Allergies/Adverse Reactions: No Known Allergies Allergy (Verified 06/29/19 08:21) Home Medications: Gabapentin Past Medical History - General Information source: Patient - Social History Frequency of alcohol use: None Drug Abuse: None Pulmonary Medical History: Reports: Hx Asthma Neurological Medical History: Reports: Hx Seizures Psychiatric Medical History: Denies: Hx Depression Past Surgical History: Reports: Hx Herniorrhaphy, Hx Mastectomy - bilateral, Hx Tubal Ligation, Other - Breast biopsy bilateral - Immunizations Hx Diphtheria, Pertussis, Tetanus Vaccination: Yes Review of Systems - Review of Systems Constitutional: No symptoms reported EENT: No symptoms reported Cardiovascular: No symptoms reported Respiratory: No symptoms reported Gastrointestinal: No symptoms reported Genitourinary: No symptoms reported Female Genitourinary: No symptoms reported Musculoskeletal: No symptoms reported Skin: No symptoms reported Hematologic/Lymphatic: No symptoms reported Neurological/Psychological: No symptoms reported Physical Exam - Vital signs Vitals: Temp Pulse Resp BP Pulse Ox 98.4 F 94 16 156/93 H 100 07/02/19 14:23 07/02/19 14:23 07/02/19 14:07/02/19 14:23 07/02/19 14:23 Interpretation: Normal - General General appearance: Appears well, Alert - HEENT Head: Normocephalic, Atraumatic Eyes: Normal Pupils: PERRL - Respiratory Respiratory status: No respiratory distress Chest status: Nontender Breath sounds: Normal Chest palpation: Normal - Cardiovascular Rhythm: Regular Heart sounds: Normal auscultation Murmur: No - Abdominal Inspection: Normal Distension: No distension Bowel sounds: Normal Tenderness: Nontender Organomegaly: No organomegaly - Back Back: Normal, Nontender - Extremities General upper extremity: Normal inspection, Nontender, Normal color, Normal ROM, Normal temperature General lower extremity: Normal inspection, Nontender, Normal color, Normal ROM, Normal temperature, Normal weight bearing. No: Sixto's sign - Neurological Neuro grossly intact: Yes Cognition: Normal Orientation: AAOx4 Heather Coma Scale Eye Opening: Spontaneous Heather Coma Scale Verbal: Oriented [place] Coma Scale Motor: Obeys Commands Heather Coma Scale Total: 15 Speech: Normal Motor strength normal: LUE, RUE, LLE, RLE Sensory: Normal - Psychological Associated symptoms: Normal affect, Normal mood - Skin Skin Temperature: Warm Skin Moisture: Dry Skin Color: Normal Course - Vital Signs Vital signs: Temp Pulse Resp BP Pulse Ox 98.4 F 94 16 156/93 H 100 07/02/19 14:23 07/02/19 14:23 07/02/19 14:23 07/02/19 14:23 07/02/19 14:23 Doctor's Discharge - Discharge Clinical Impression: Atypical neuralgia, Lumbar radiculopathy, acute Disposition: HOME, SELF-CARE Instructions: Neuralgia ([facility]) Additional Instructions: Must follow-up with Dr. Whitman as previously scheduled. Must return to the emergency room for absolutely any change or worsening condition.
[2019-07-02] MEDS ORDERED: HYDROCODONE/ACETAMINOPHEN 10-325 MG TABLET PO ONE (15:35)
[2019-07-02 16:15] VITALS: BP 134/85
--- NOTE | 2019-07-02 19:01 | EKG REPORT ---
SEVERITY:- ABNORMAL ECG - SINUS TACHYCARDIA BIATRIAL ABNORMALITIES LEFT VENTRICULAR HYPERTROPHY : Confirmed by: Alexis Champagne 02-Jul-2019 19:01:22
== END 2019-07-02 16:20 | disposition home or self-care (01) ==
LOC: ER 14:00
DX: M79.2 Neuralgia and neuritis, unspecified (principal); T42.6X6A Underdosing of other antiepileptic and sedative-hypnotic drugs, initial encounter; Z91.138 Patient's unintentional underdosing of medication regimen for other reason; Z91.14 Patient's other noncompliance with medication regimen; J45.909 Unspecified asthma, uncomplicated
CPT/HCPCS: 93005; 93010; 99283

== ENCOUNTER 2019-07-03 12:56 | Emergency (ER) | payer OTHER ==
[2019-07-03 13:28] LABS: MEAN CORPUSCULAR HEMOGLOBIN 32.5 pg (27.0-33.4); MEAN CORPUSCULAR HGB CONC 33.4 g/dL (32.0-36.0); MEAN CORPUSCULAR VOLUME 97 fl (80-97); PLATELET COUNT 258 10^3/uL (150-450); RED CELL DISTRIBUTION WIDTH 12.8 % (11.5-14.0); WHITE BLOOD COUNT 10.3 10^3/uL (4.0-10.5)
[2019-07-03 13:47] LABS: CALCIUM 9.6 mg/dL (8.4-10.2)
[2019-07-03 13:58] LABS: ABSOLUTE LYMPHOCYTES# (MANUAL) 1.9 10^3/uL (0.5-4.7); ABSOLUTE MONOCYTES # (MANUAL) 1.6 10^3/uL (0.1-1.4); BASOPHILS % (MANUAL) 3 % (0-2); EOSINOPHILS % (MANUAL) 0 % (0-6); LYMPHOCYTES % (MANUAL) 18 % (13-45); MONOCYTES % (MANUAL) 16 % (3-13); SEGMENTED NEUTROPHILS % (MAN) 63 % (42-78); TOTAL CELLS COUNTED 100
[2019-07-03] MEDS ORDERED: NORMAL SALINE 500 ML IV ONE (14:05)
[2019-07-03] MEDS ORDERED: ONDANSETRON HCL INJ/PF 4 MG/2 ML SDV IV ONE (14:05)
[2019-07-03] MEDS ORDERED: MORPHINE SULFATE 10 MG/ML INJ IV ONE (14:05)
[2019-07-03 14:06] LABS: POLYCHROMASIA 1+
[2019-07-03 14:07] LABS: PLATELET COMMENT ADEQUATE
--- NOTE | 2019-07-03 14:11 | ER Document Report ---
ED General - General Chief Complaint: Leg Pain Stated Complaint: LEG PAIN/LOWER BACK PAIN Primary Care Provider: [facility] [NO LOCAL MD] - Follow up in 3-5 days Mode of Arrival: Medic Information source: Patient, [facility] Records Notes: 53-year-old female presents for the fourth time this week with complaints of low back pain and lower extremity weakness. Patient denies inciting injury. She states she does have seizures and it is possible that she had fallen to the floor. Patient's pain is bilateral and without radiation. She describes it as a throbbing aching pain that is worse with standing, walking. Patient denies urinary retention, fecal incontinence. Patient was recently discharged from [facility] on the after being admitted for hyponatremia. During that hospital course an MRI was performed which showed high-grade stenosis. Patient states that she is assisted at home by her fianc. TRAVEL OUTSIDE OF THE [place] IN LAST 30 DAYS: No - HPI Onset: Other Onset/Duration: Persistent Quality of pain: Achy, Throbbing Severity: Moderate Pain Level: 2 Associated symptoms: Body/muscle aches. denies: Nonproductive cough, Productive cough, Fever, Leg swelling, Nausea, Vomiting, Shortness of breath Exacerbated by: Movement, Walking Relieved by: Denies Similar symptoms previously: Yes Recently seen / treated by doctor: Yes - Related Data Allergies/Adverse Reactions: No Known Allergies Allergy (Verified 06/29/19 08:21) Past Medical History - General Information source: Patient - Social History Smoking Status: Current Every Day Smoker Cigarette use (# per day): Yes Family History: DM, Other - Sickle cell anemia Patient has suicidal ideation: No Patient has homicidal ideation: No Pulmonary Medical History: Reports: Hx Asthma Neurological Medical History: Reports: Hx Seizures Psychiatric Medical History: Denies: Hx Depression Past Surgical History: Reports: Hx Herniorrhaphy, Hx Mastectomy - bilateral, Hx Tubal Ligation, Other - Breast biopsy bilateral - Immunizations Hx Diphtheria, Pertussis, Tetanus Vaccination: Yes Physical Exam - Vital signs Vitals: Temp Pulse Resp BP Pulse Ox 99.6 F 102 H 12 165/94 H 100 07/03/19 13:16 07/03/19 13:16 07/03/19 13:16 07/03/19 13:16 07/03/19 13:16 Course - Re-evaluation Re-evalutation: 07/03/19 15:19 Social work consulted and will be assisting the [facility]. Presentation of a well appearing patient complaining of acute on chronic back pain. No rapid progression of symptoms, systemic symptoms including fevers, chills, weight loss, history of recent bacterial infection, bilateral symptoms, numbness, weakness, difficulty walking, urinary retention or bowel incontinence, personal history of cancer, immunosuppression, diabetes, known AAA, or history of IV drug use. Exam is without point tenderness over vertebral bodies, pulsatile abdominal mass, and patient has symmetric and intact lower extremity strength, sensation, and reflexes without clonus. 2+ symmetric medial malleolar and dorsalis pedis pulses Based on history and physical, I have a very low suspicion of a concerning etiology of pain including epidural compression syndrome, spinal infection, transverse myelitis, malignancy, abdominal aortic aneurysm, renal colic, acute lower extremity claudication, neurogenic claudication, ankylosing spondylitis, or other intra-abdominal process. Due to absence of concerning risk factors in history and physical as well as absence of rapidly progressive, severe, or bilateral symptoms, will defer imaging at this point. Plan to manage conservatively with outpatient analgesia, analgesia, and physical therapy. - Acetaminophen 650 q 4 + ibuprofen 600 q 6 - Continue normal daily activities as tolerated by pain - Provide with standard musculoskeletal back pain exercise instructions - Instruct to follow up with primary care provider if symptoms not improving - Provide careful return precautions and concerning symptoms to watch for. 07/03/19 15:21 Patient was evaluated and treated as appropriate for the patient's presenting symptoms and complaint, with consideration of any critical or life threatening conditions that may be associated with their obtained history and exam as noted above. All results were discussed with patient and... Patient provided the opportunity to ask questions, and express concerns. Patient was educated on treatments based on their presumed diagnosis as noted above. At this time we will discharge the patient with return precautions and follow-up recommendations. Verbal discharge instructions given a the bedside. Medication warnings reviewed. Patient is in agreement with this plan and has verbalized understanding of return precautions. After careful consideration I feel that that patient can be safely discharged from the emergency department, they were advised to followup with a primary care physician in 2-3 days. Dictation on this chart was performed using voice recognition software and may result in unintended grammatical, spelling, syntax or errors. - Vital Signs Vital signs: Temp Pulse Resp BP Pulse Ox 99.6 F 102 H 12 165/94 H 100 07/03/19 13:16 07/03/19 13:16 07/03/19 13:16 07/03/19 13:16 07/03/19 13:16 - Laboratory Result Diagrams: 07/03/19 13:16 07/03/19 13:16 Laboratory results interpreted by me: 07/03/19 07/03/19 13:16 13:16 RBC 3.40 L Hgb 11.0 L Hct 33.0 L Monocytes % (Manual) 16 H Basophils % (Manual) 3 H Abs Monocytes (Manual) 1.6 H Abs Basophils (Manual) 0.3 H Sodium 131.9 L Chloride 93 L Creatinine 0.34 L AST 77 H - Diagnostic Test Radiology reviewed: Image reviewed, Reports reviewed Discharge - Discharge Clinical Impression: Bilateral leg weakness, Hyponatremia, Lumbar radiculopathy, acute Spinal stenosis Qualifiers: Spinal region: unspecified Qualified Code(s): M48.00 - Spinal stenosis, site unspecified Condition: Fair Disposition: HOME, SELF-CARE Instructions: Hyponatremia ([facility]), Low Back Pain ([facility]) Prescriptions: Lidocaine [Lidoderm 5% (700 mg) Transdermal Patch] 1 patch TP DAILY #7 adh..patch Forms: Elevated Blood Pressure [facility]: [facility] [NO LOCAL MD] - Follow up in 3-5 days
[2019-07-03 14:12] LABS: ALBUMIN 3.9 g/dL (3.5-5.0); ALKALINE PHOSPHATASE 107 U/L (38-126); ANION GAP 9 (5-19); ASPARTATE AMINO TRANSFERASE 77 U/L (14-36); BILIRUBIN,DIRECT 0.3 mg/dL (0.0-0.4); BILIRUBIN,TOTAL 0.6 mg/dL (0.2-1.3); BLOOD UREA NITROGEN 10 mg/dL (7-20); CARBON DIOXIDE 30 mmol/L (22-30); CHLORIDE 93 mmol/L (98-107); GLUCOSE 95 mg/dL (75-110); TOTAL PROTEIN 8.1 g/dL (6.3-8.2)
[2019-07-03] MEDS ORDERED: LIDOCAINE 5% (700 MG) TRANSDERMAL ADH..PATCH TP SCH (15:15)
[2019-07-03 16:13] VITALS: BP 146/91
== END 2019-07-03 16:20 | disposition home or self-care (01) ==
LOC: ER 12:56
DX: M48.00 Spinal stenosis, site unspecified (principal); M54.16 Radiculopathy, lumbar region; M62.81 Muscle weakness (generalized); E87.1 Hypo-osmolality and hyponatremia; M54.5 Low back pain; M79.604 Pain in right leg; M79.605 Pain in left leg; F17.210 Nicotine dependence, cigarettes, uncomplicated; J45.909 Unspecified asthma, uncomplicated
CPT/HCPCS: 99283; 96361; 96374; 96375; 36415; 85025; 80053; J2270; J2405; J7040

== ENCOUNTER 2019-07-04 11:19 | Emergency (ER) | payer OTHER ==
--- NOTE | 2019-07-04 11:49 | ER Document Report ---
ED Medical Screen (RME) - General Stated Complaint: BILATERAL LEG PAIN Time Seen by Provider: 07/04/19 11:46 Cannot obtain history due to: Other - This is a 53-year-old female who presented to the emergency room today stating she had lower extremity discomfort. Should be noted that she was seen here in the department last night for the same complaints. Apparently she had been admitted to the hospital twice over the last 2 weeks for a 5-day stay and a 1 week stay respectively. For the same issue. TRAVEL OUTSIDE OF THE [place] IN LAST 30 DAYS: No - Related Data Allergies/Adverse Reactions: No Known Allergies Allergy (Verified 07/04/19 11:47) Past Medical History Pulmonary Medical History: Reports: Hx Asthma Neurological Medical History: Reports: Hx Seizures Psychiatric Medical History: Denies: Hx Depression Past Surgical History: Reports: Hx Herniorrhaphy, Hx Mastectomy - bilateral, Hx Tubal Ligation, Other - Breast biopsy bilateral - Immunizations Hx Diphtheria, Pertussis, Tetanus Vaccination: Yes Physical Exam - Vital signs Vitals: Temp Pulse Resp BP Pulse Ox 96.9 F L 113 H 24 H 154/102 H 100 07/04/19 11:42 07/04/19 11:42 07/04/19 11:42 07/04/19 11:42 07/04/19 11:42 Course - Vital Signs Vital signs: Temp Pulse Resp BP Pulse Ox 96.9 F L 113 H 24 H 154/102 H 100 07/04/19 11:42 07/04/19 11:42 07/04/19 11:42 07/04/19 11:42 07/04/19 11:42
[2019-07-04 12:35] LABS: ABSOLUTE BASOPHILS # (AUTO) 0.1 10^3/uL (0.0-0.2); ABSOLUTE EOSINOPHILS # (AUTO) 0.1 10^3/uL (0.0-0.6); ABSOLUTE MONOCYTES (AUTO) 1.8 10^3/uL (0.1-1.4); ABSOLUTE NEUT (AUTO) 5.7 10^3/uL (1.7-8.2); BASOPHILS % (AUTO) 0.9 % (0-2); EOSINOPHILS % (AUTO) 0.8 % (0-6); HEMATOCRIT 34.5 % (36.0-47.0); HEMOGLOBIN 11.7 g/dL (12.0-15.5); LYMPHOCYTES % (AUTO) 20.5 % (13-45); MEAN CORPUSCULAR HEMOGLOBIN 32.7 pg (27.0-33.4); MEAN CORPUSCULAR HGB CONC 33.8 g/dL (32.0-36.0); MEAN CORPUSCULAR VOLUME 97 fl (80-97); MONOCYTES % (AUTO) 18.7 % (3-13); PLATELET COUNT 298 10^3/uL (150-450); RED BLOOD COUNT 3.56 10^6/uL (3.72-5.28); SEGMENTED NEUTROPHILS % (AUTO) 59.1 % (42-78); TOTAL CELLS COUNTED % (AUTO) 100 %; WHITE BLOOD COUNT 9.7 10^3/uL (4.0-10.5)
[2019-07-04 13:51] LABS: ALBUMIN 3.9 g/dL (3.5-5.0); CHLORIDE 95 mmol/L (98-107); POTASSIUM 4.2 mmol/L (3.6-5.0)
[2019-07-04] MEDS ORDERED: FENTANYL CITRATE INJ/PF 100 MCG/2 ML AMPUL IM ONE (14:06)
--- NOTE | 2019-07-04 14:06 | ER Document Report ---
ED General - General Chief Complaint: Leg Pain Stated Complaint: BILATERAL LEG PAIN Time Seen by Provider: 07/04/19 11:46 Notes: Patient is a 53-year-old -[place] female with a past medical history significant for chronic lower back pain who was recently admitted here for hyponatremia and lower extremity weakness who returns today with ongoing complaints of lower back pain and lower extremity pain. She states that she was given a prescription for gabapentin to take for neuropathic pains but states that she has not been taking it. She did not take it today because she states she was unsure what was going to "happen here today". She denies any new fall, injury or trauma since the admission. She has been seen here in the emergency department over the past few days daily for the same complaints. She has an outpatient appointment this week coming with Dr. Whitman for pain management/care of her lumbar findings. She denies any urinary or bowel incontinence or retention. She denies any saddle anesthesia. TRAVEL OUTSIDE OF THE [place] IN LAST 30 DAYS: No - Related Data Allergies/Adverse Reactions: No Known Allergies Allergy (Verified 07/04/19 11:47) Past Medical History - Social History Smoking Status: Current Every Day Smoker Chew tobacco use (# tins/day): No Frequency of alcohol use: None Drug Abuse: None Family History: DM, Other - Sickle cell anemia Patient has suicidal ideation: No Patient has homicidal ideation: No Pulmonary Medical History: Reports: Hx Asthma Neurological Medical History: Reports: Hx Seizures Psychiatric Medical History: Denies: Hx Depression Past Surgical History: Reports: Hx Herniorrhaphy, Hx Mastectomy - bilateral, Hx Tubal Ligation, Other - Breast biopsy bilateral - Immunizations Hx Diphtheria, Pertussis, Tetanus Vaccination: Yes Review of Systems - Review of Systems Musculoskeletal: Back pain -: Yes All other systems reviewed and negative Physical Exam - Vital signs Vitals: Temp Pulse Resp BP Pulse Ox 96.9 F L 113 H 24 H 154/102 H 100 07/04/19 11:42 07/04/19 11:42 07/04/19 11:42 07/04/19 11:42 07/04/19 11:42 - General General appearance: Alert, Other - Emaciated - HEENT Head: Normocephalic, Atraumatic Eyes: Normal Pupils: PERRL Mucous membranes: Moist - Respiratory Respiratory status: No respiratory distress Chest status: Nontender Breath sounds: Normal Chest palpation: Normal - Cardiovascular Rhythm: Regular Heart sounds: Normal auscultation - Back Back: Other - Normal inspection of the spine. Patient with full flexion and extension of the lumbar spine. No point tenderness over the vertebral bodies of the lumbar spine. She is diffusely tender to the paralumbar musculature at the L4-5 regions bilaterally. She has a lidocaine patch on the lower back at this time. Her lower extremity strength is 4 out of 5 bilaterally. She has 2+ DP/PT bilaterally. She is able to elevate her great toes bilaterally. She is able to lift her extremities against gravity. Gait testing limited by patient's pain. - Extremities General lower extremity: No: Sixto's sign - Neurological Neuro grossly intact: Yes Cognition: Normal Orientation: AAOx4 [place] Coma Scale Eye Opening: Spontaneous [place] Coma Scale Verbal: Oriented [place] Coma Scale Motor: Obeys Commands [place] Coma Scale Total: 15 Speech: Normal Motor strength normal: LUE, RUE, LLE, RLE Sensory: Normal - Psychological Associated symptoms: Normal affect, Normal mood - Skin Skin Temperature: Warm Skin Moisture: Dry Skin Color: Normal Course - Vital Signs Vital signs: Temp Pulse Resp BP Pulse Ox 98.4 F 94 18 146/91 H 100 07/04/19 14:28 07/04/19 14:28 07/04/19 14:28 07/04/19 14:28 07/04/19 14:28 - Laboratory Result Diagrams: 07/04/19 12:03 07/04/19 13:10 Laboratory results interpreted by me: 07/04/19 07/04/19 12:03 13:10 RBC 3.56 L Hgb 11.7 L Hct 34.5 L [place] % (Auto) 18.7 H Absolute Monos (auto) 1.8 H Sodium 135.2 L Chloride 95 L Creatinine 0.37 L AST 150 H ALT 59 H Total Protein 8.3 H Discharge - Discharge Clinical Impression: Chronic low back pain with bilateral sciatica Qualifiers: Back pain laterality: unspecified Qualified Code(s): M54.41 - Lumbago with sciatica, right side; M54.42 - Lumbago with sciatica, left side; G89.29 - Other chronic pain Peripheral neuropathy Qualifiers: Peripheral neuropathy type: polyneuropathy, unspecified Qualified Code(s): G62.9 - Polyneuropathy, unspecified Condition: Stable Disposition: HOME, SELF-CARE Instructions: Chronic Back Pain ([facility]) Additional Instructions: Please follow-up with the doctor outpatient that you have been scheduled for this coming week, Dr. Whitman to continue care for your back. Take the medications as previously prescribed for your lower back pain/nerve pain. Please return here or any ER immediately with any new, persistent or worsening symptoms.
[2019-07-04 14:08] LABS: ALKALINE PHOSPHATASE 114 U/L (38-126); ANION GAP 11 (5-19); ASPARTATE AMINO TRANSFERASE 150 U/L (14-36); BILIRUBIN,DIRECT 0.3 mg/dL (0.0-0.4); BILIRUBIN,TOTAL 0.5 mg/dL (0.2-1.3); BLOOD UREA NITROGEN 10 mg/dL (7-20); CALCIUM 9.8 mg/dL (8.4-10.2); CARBON DIOXIDE 29 mmol/L (22-30); GLUCOSE 110 mg/dL (75-110); TOTAL PROTEIN 8.3 g/dL (6.3-8.2)
[2019-07-04 14:32] VITALS: BP 146/91
== END 2019-07-04 16:13 | disposition home or self-care (01) ==
LOC: ER 11:19
DX: G62.9 Polyneuropathy, unspecified (principal); T42.6X6A Underdosing of other antiepileptic and sedative-hypnotic drugs, initial encounter; Z91.128 Patient's intentional underdosing of medication regimen for other reason; Z91.14 Patient's other noncompliance with medication regimen; G89.29 Other chronic pain; M54.41 Lumbago with sciatica, right side; M54.42 Lumbago with sciatica, left side; F17.200 Nicotine dependence, unspecified, uncomplicated; J45.909 Unspecified asthma, uncomplicated
CPT/HCPCS: 99283; 96372; 36415; 85025; 80053; J3010